=== PATIENT | male | born 1950 | race Caucasian/White ===

== ENCOUNTER → 2016-10-24 | Outpatient (CLI) | payer OTHER | LOC: FIMAGING 11:14 | PROVIDERS: ATTEND Orthopaedic Surgery Orthopaedic Surgery of the Spine | DX: R93.7 Abnormal findings on diagnostic imaging of other parts of musculoskeletal system (principal); M53.3 Sacrococcygeal disorders, not elsewhere classified ==

== ENCOUNTER 2016-11-09 05:36 | Day surgery (SDC) | payer OTHER ==
--- NOTE | 2016-11-08 22:00 | GHP ---
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 HISTORY OF PRESENT ILLNESS: The patient was referred to us for a coccygeal retro fistula with possi ble osteomyelitis. He states that he has had tailbone pain on the left aspect of his buttocks for 7 years and has had 2 MRIs that characterize it. He says that he has pain when sitting. However, he does not associate any pain with bowel movements. He denies any fevers associated with the inflamm atory pain that he is experiencing. He denies any past medical history, including heart or lung iss ues, diabetes mellitus, or asthma. The patient is not a smoker. 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 FAMILY HISTORY: Noncontributory. SOCIAL HISTORY: PAST SURGICAL HISTORY: PAST MEDICAL HISTORY: Negative for any major surgeries or serious hospitalizations. ALLERGIES: No known allergies. MEDICATIONS: No medications. REVIEW OF SYSTEMS: A 10-point review of systems was negative except for as stated above in the HPI. PHYSICAL EXAMINATION: GENERAL: A well groomed, pleasant, nontoxic appearing male. SKIN: Warm, dr stone. HEENT: Normocephalic. Pupils equal and round. Negative for bruits. No scleral icterus. No g ross auditory deficiencies. CARDIAC: Regular rate and rhythm. RESPIRATORY: Clear to auscultation bilaterally. No increased work of breathing. EXTREMITIES: Adequate peripheral perfusion. Negativ e for peripheral edema. MUSCULOSKELETAL: Ambulates independently. Normal gait. NEURO: Alert and oriented x4. PSYCH: Mood and affect are normal. COLORECTAL: Positive for anal fistula at the po sterior aspect that tracks deep about 3 cm, but does not seem to track to bone. Negative for hemorr hoids. ASSESSMENT: 1. Anal fistula. 2. Rectal pain. 3. Suspect the patient's anal pain is secondary to his chronic posterior anal fistula. He is tende r with some movement of his coccyx, but no real evidence of osteomyelitis. PLAN: 1. Examination under anesthesia with anal fistulectomy. 2. A prescription for Bactrim DS 800/160 mg oral tablet 1 tablet p.o. b.i.d. was prescribed on 08/0 09/2016. 3. The patient was advised that he has anal fistula evident by physical exam, and that with this an d review of his MRI films, it is fistula tract deep to the bone. It was pointed out that his fistula probably gets inflamed, which causes his pain, but that his hemorrhoids are not bad and would not be the cause of it. I explained that in the operating room, we can characterize the fist john with dye, then depending on how much of involved, the fistula could be either removed wholly or partially with adhesive repair beyond that. The patient will work with our surgery sched farrukh to figure out a time to go to the OR for an EUA with anal fistulectomy. In the meantime, his M RI will be reviewed with the radiologist to see how close the fistula tracks to the coccyx and discu ss any indications for removing it. /[id number]/MODL
[2016-11-09] MEDS ORDERED: LR 1,000 ML IV ONE (05:49)
[2016-11-09] MEDS ORDERED: LIDOCAINE 1% 2 ML INJ ID PRN (05:49)
[2016-11-09] MEDS ORDERED: LIDOCAINE 1% 2 ML INJ ONE (05:54)
[2016-11-09] MEDS ORDERED: cefOXitin SODIUM 2 GM in D5W 100 ML IV ONE (06:00)
[2016-11-09 06:46] LABS: HEMATOCRIT 39.7 % (40.0-51.0)
[2016-11-09] MEDS ORDERED: MIDAZOLAM 2 MG/2 ML VIAL IVP ONE (06:53)
--- NOTE | 2016-11-09 06:53 | PDANEPAE ---
ANE History of Present Illness 66 year old male w/ limited PMHx presents for repair of anal/rectal fistula with possible sacral osteo. ANE Past Medical History - Cardiovascular History Hx Hypertension: No Hx Arrhythmias: No Hx Chest Pain: No Hx Coronary Artery / Peripheral Vascular Disease: No Hx CHF / Valvular Disease: No Hx Palpitations: No - Pulmonary History Hx COPD: No Hx Asthma/Reactive Airway Disease: No Hx Recent Upper Respiratory Infection: No Hx Oxygen in Use at Home: No Hx Sleep Apnea: No Sleep Apnea Screening Result - Last Documented: Negative - Neurologic History Hx Cerebrovascular Accident: No Hx Seizures: No Hx Dementia: No - Endocrine History Hx Diabetes: No Hypothyroid: No Hyperthyroid: No Obesity: no - Renal History Hx Renal Disorders: Yes Renal History Comment: BPH - Liver History Hx Hepatic Disorders: No - Neurological & Psychiatric Hx Hx Neurological and Psychiatric Disorders: No - Cancer History Hx Cancer: No - Congenital Disorder History Hx Congenital Disorders: No - GI History GERD: no Hx Gastrointestinal Disorders: No - Other Health History Other Health History: NEG - Chronic Pain History Chronic Pain: No - Surgical History Prior Surgeries: NONE ANE Review of Systems - Exercise capacity Exercise capacity: >=4 METS METS (RN): 4 METS ANE Patient History - Allergies Allergies/Adverse Reactions: No Known Drug Allergies Allergy (Verified 11/06/16 06:47) - Home Medications Home medications: home medication list seen and reviewed Home Medications: Ibuprofen 11/07/16 [Last Taken 2 Days Ago] Saw [place] 11/07/16 [Last Taken 2 Days Ago] Bactrim DS 11/09/16 [Last Taken 11/08/16 20:00] - NPO status NPO Status: no food or drink >8 hours NPO Since - Liquids (Date): 11/08/16 NPO Since - Liquids (Time): 20:00 NPO Since - Solids (Date): 11/08/16 NPO Since - Solids (Time): 19:30 - Anes Hx Anes Hx: no prior problems - Smoking Hx Smoking Status: Former smoker - Alcohol Use Alcohol Use: Rarely - Family Anes Hx Family Hx Anesthesia Complications: NEG ANE Labs/Vital Signs - Labs Result Diagrams: 11/09/16 05:47 - Vital Signs Vital Signs: reviewed preoperatively; see RN documention for details Blood Pressure: 127/80 Heart Rate: 69 Respiratory Rate: 14 O2 Sat (%): 95 Height: 180.34 cm Weight: 86.183 kg ANE Physical Exam - Airway Neck exam: FROM Mallampati Score: Class 2 Mouth exam: normal dental/mouth exam - Pulmonary Pulmonary: no respiratory distress - Cardiovascular Cardiovascular: regular rate and rhythym - ASA Status ASA Status: I ANE Anesthesia Plan Anesthesia Plan: general endotracheal anesthesia
[2016-11-09] MEDS ORDERED: HYDROGEN PEROXIDE 236 ML BOTTLE TP ONE (06:56)
[2016-11-09] MEDS ORDERED: METHYLENE BLUE 0.5% 50 MG/10 ML AMP ONE (06:56)
[2016-11-09] MEDS ORDERED: BUPIVACAINE/EPI 0.5% 30 ML SDV ONE ×2 (06:56→07:22)
[2016-11-09] MEDS ORDERED: fentaNYL 100 MCG/2 ML INJ ONE (07:03)
[2016-11-09] MEDS ORDERED: PROPOFOL 200 MG/20 ML VIAL ONE (07:03)
--- NOTE | 2016-11-09 07:07 | PDHPUP ---
History & Physical Update H&P update statement: This history and physical update is based on an assessment of the patient which was completed after admission or registration (within 24 hours), but prior to the surgery/procedure. H&P update: H&P reviewed & patient examined, no change in patient's condition since H&P completed
[2016-11-09] MEDS ORDERED: ROCURONIUM 50 MG/5 ML VIAL ONE (07:16)
[2016-11-09] MEDS ORDERED: LIDOCAINE 2% 5 ML SDV ONE (07:16)
[2016-11-09] MEDS ORDERED: DEXAMETHASONE 4 MG/ML VIAL ONE (07:28)
[2016-11-09] MEDS ORDERED: ONDANSETRON 4 MG/2 ML VIAL ONE (07:28)
[2016-11-09] MEDS ORDERED: LR 500 ML IV PRN (07:37)
[2016-11-09] MEDS ORDERED: NALOXONE HCL 0.4 MG/ML INJ IVP PRN (07:37)
[2016-11-09] MEDS ORDERED: fentaNYL 100 MCG/2 ML INJ IVP PRN (07:37)
[2016-11-09] MEDS ORDERED: MEPERIDINE 25 MG/ML SYR IVP PRN (07:37)
[2016-11-09] MEDS ORDERED: HYDROCODONE/APAP 5/325 TAB PO PRN (07:37)
[2016-11-09] MEDS ORDERED: ONDANSETRON 4 MG/2 ML VIAL IVP PRN (07:37)
[2016-11-09] MEDS ORDERED: SUGAMMADEX SODIUM 200 MG/2 ML VIAL IVP ONE ×2 (08:00)
[2016-11-09] MEDS ORDERED: PHENYLEPHRINE HCL 100 MCG/ML SYR ONE (08:05)
--- NOTE | 2016-11-09 08:43 | POSTOPPROG ---
Post Op Note Date of Operation: 11/09/16 Surgeon: Brian Dominguez Coach Builder: Yancy Reeder Anesthesiologist: M[place] Anesthesia: GET(General Endotracheal) Pre-op Diagnosis: Anal fistula, possible coccygeal osteomyelitis Post-op Diagnosis: Anal fistula Procedure: Anal fistulectomy Findings: Anal fistula, small abscess Inf/Abcess present in the surg proc area at time of surgery?: Yes Depth: Superfical (Skin SQ) EBL: Minimal
[2016-11-09 09:53] VITALS: TEMP 97.7
[2016-11-09 09:55] VITALS: BP 98/72; PULSE 61; RESP 16; O2SAT 98
--- NOTE | 2016-11-09 13:13 | POSTANESTH ---
Post Anesthetic Evaluation Cardiovascular Status: Normal, Stable Respiratory Status: Normal, Stable Level of Consciousness/Mental Status: Can Participate in Eval Pain Control: Adequate, Prn Tx Ordered Nausea/Vomiting Control: Adequate, Prn Tx Ordered Complications Possibly Related to Anesthesia: None Noted
== END 2016-11-09 09:44 | disposition home or self-care (01) ==
LOC: FSGY 05:36
PROVIDERS: ATTEND Surgery
PROC: 0DBQ0ZZ Excision of Anus, Open Approach (ICD-10-PCS; principal; 2016-11-09 07:15)
DX: K60.3 Anal fistula (principal)
CPT/HCPCS: J0694; J1100; J2250; J2370; J2405; J2704; J3010; Q9968

== ENCOUNTER 2017-04-26 06:38 | Day surgery (SDC) | payer OTHER ==
--- NOTE | 2017-04-24 17:54 | GHP ---
[f rep st] PREOP HISTORY AND PHYSICAL DATE OF ADMISSION: 04/24/2017 The patient is a 66-year-old male who underwent exam under anesthesia with anal fistulectomy for an a nal fistula possibly involving coccygeal osteomyelitis. He was initially doing well, but began to de velop recurrent pain. Ultimately, an MRI was ordered and showed a tubular fluid signal intensity col lection extending from the posterior margin of the distal rectum to the tip of the coccyx, suggesting a sinus tract. Also, he had abnormal signal intensity within the distal third segment of the coccyx , which was consistent with acute osteomyelitis. There was mild reactive bone marrow edema throughou t the second coccygeal segment. Patient has been on a course of antibiotics. He still has complaint s of pain. He is now here for coccygectomy. PAST MEDICAL HISTORY: Aside from that in the HPI, is negative for any major surgeries or serious hos pitalizations. MEDICATIONS: No regular medicine use. ALLERGIES: No known drug allergies. SOCIAL HISTORY: He is often here with his . REVIEW OF SYSTEMS: 10-point review of systems negative, aside from that in the HPI. PHYSICAL EXAMINATION: GENERAL: Reveals a well-groomed, pleasant, nontoxic-appearing male. SKIN: W arm and dry. HEENT: Normocephalic. Pupils equal and round. Negative for neck bruits. No scleral icterus. CHEST: Clear to auscultation bilaterally. CARDIAC: Regular rate and rhythm. ABDOMEN: S oft, nontender. EXTREMITIES: Warm, well perfused. No edema. COLORECTAL: Fistula site healed, wit h some residual coccygeal tenderness. IMPRESSION: This is a 66-year-old male with a history of anal fistulectomy potentially with a tract involving the coccyx, rule out osteomyelitis. PLAN: Plan is to proceed with a coccygectomy. Risks and options have been fully discussed and he re quests to proceed. /[id number]/MODL
[~2017-04-26 06:38] MED LIST: ERTAPENEM 1 GM VIAL IVP ONE
[2017-04-26] MEDS ORDERED: LR 1,000 ML IV ONE (06:43)
[2017-04-26] MEDS ORDERED: LIDOCAINE 1% 2 ML INJ ID PRN (06:43)
--- NOTE | 2017-04-26 08:03 | PDANEPAE ---
ANE History of Present Illness 66 yo for coccygectomy for osteo ANE Past Medical History - Cardiovascular History Hx Hypertension: No Hx Arrhythmias: No Hx Chest Pain: No Hx Coronary Artery / Peripheral Vascular Disease: No Hx CHF / Valvular Disease: No Hx Palpitations: No - Pulmonary History Hx COPD: No Hx Asthma/Reactive Airway Disease: No Hx Recent Upper Respiratory Infection: No Hx Oxygen in Use at Home: No Hx Sleep Apnea: No Sleep Apnea Screening Result - Last Documented: Negative - Neurologic History Hx Cerebrovascular Accident: No Hx Seizures: No Hx Dementia: No - Endocrine History Hx Diabetes: No - Renal History Hx Renal Disorders: Yes Renal History Comment: BPH - Liver History Hx Hepatic Disorders: No - Neurological & Psychiatric Hx Hx Neurological and Psychiatric Disorders: No - Cancer History Hx Cancer: No - Congenital Disorder History Hx Congenital Disorders: No - GI History Hx Gastrointestinal Disorders: No - Other Health History Other Health History: NEG - Chronic Pain History Chronic Pain: No - Surgical History Prior Surgeries: FISSURECTOMY ANE Review of Systems Review of Systems: - Exercise capacity METS (RN): 5 METS ANE Patient History - Allergies Allergies/Adverse Reactions: No Known Drug Allergies Allergy (Verified 11/06/16 06:47) - Home Medications Home medications: home medication list seen and reviewed Home Medications: Ibuprofen 11/07/16 [Last Taken 3 Days Ago ~04/23/17] Saw [place] 11/07/16 [Last Taken 04/25/17 20:00] - NPO status NPO Status: no food or drink >8 hours NPO Since - Liquids (Date): 04/25/17 NPO Since - Liquids (Time): 22:00 NPO Since - Solids (Date): 04/25/17 NPO Since - Solids (Time): 21:00 - Anes Hx Anes Hx: no prior problems - Smoking Hx Smoking Status: Former smoker - Family Anes Hx Family Hx Anesthesia Complications: NEG ANE Labs/Vital Signs - Vital Signs Blood Pressure: 124/77 Heart Rate: 71 Respiratory Rate: 15 O2 Sat (%): 91 Height: 5 ft 10 in Weight: 83.915 kg ANE Physical Exam - Airway Neck exam: FROM Mallampati Score: Class 2 Mouth exam: normal dental/mouth exam - Pulmonary Pulmonary: no respiratory distress - Cardiovascular Cardiovascular: regular rate and rhythym - ASA Status ASA Status: I ANE Anesthesia Plan Anesthesia Plan: general endotracheal anesthesia
[2017-04-26] MEDS ORDERED: MIDAZOLAM 2 MG/2 ML VIAL IVP ONE (08:04)
[2017-04-26] MEDS ORDERED: BUPIVACAINE 0.5% 30 ML SDV ONE (08:04)
--- NOTE | 2017-04-26 08:11 | PDHPUP ---
History & Physical Update H&P update statement: This history and physical update is based on an assessment of the patient which was completed after admission or registration (within 24 hours), but prior to the surgery/procedure.
[2017-04-26] MEDS ORDERED: fentaNYL 100 MCG/2 ML INJ ONE (08:14)
[2017-04-26] MEDS ORDERED: PROPOFOL/EMULSION 500 MG/50 ML BOTTLE IV ONE (08:17)
[2017-04-26] MEDS ORDERED: ROCURONIUM 50 MG/5 ML VIAL ONE (08:17)
[2017-04-26] MEDS ORDERED: NALOXONE HCL 0.4 MG/ML INJ IVP PRN (09:07)
[2017-04-26] MEDS ORDERED: fentaNYL 100 MCG/2 ML INJ IVP PRN (09:07)
[2017-04-26] MEDS ORDERED: ONDANSETRON 4 MG/2 ML VIAL IVP PRN (09:07)
[2017-04-26] MEDS ORDERED: HYDROCODONE/APAP 5/325 TAB PO PRN (09:07)
[2017-04-26] MEDS ORDERED: ONDANSETRON 4 MG/2 ML VIAL ONE (09:15)
[2017-04-26] MEDS ORDERED: SUGAMMADEX SODIUM 200 MG/2 ML VIAL IVP ONE (09:15)
--- NOTE | 2017-04-26 09:37 | POSTOPPROG ---
Post Op Note Date of Operation: 04/26/17 Surgeon: Brian Dominguez Yacht Hand: elizabeth Anesthesiologist: avelino Anesthesia: GET(General Endotracheal) Pre-op Diagnosis: coccyx osteomyelitis Post-op Diagnosis: same Indication: pain Procedure: coccygectomy and anl fistulectomy/ EUA and lat int sphincterotomy Findings: subcoccygeal abscess, ? osteo/ post anal fissure but no definite connectio Inf/Abcess present in the surg proc area at time of surgery?: Yes Depth: Organ Space EBL: Minimal Complications: 0 Specimen(s): coccyx and culture
[2017-04-26] MEDS ORDERED: KETOROLAC 30 MG/1 ML SDV IVP ONE (09:42)
[2017-04-26 10:06] VITALS: PULSE 75; TEMP 97.3
[2017-04-26 11:28] VITALS: BP 111/72; RESP 19; O2SAT 92
--- NOTE | 2017-04-28 15:10 | GOP ---
[f rep st] OPERATIVE REPORT DATE OF OPERATION: 04/26/2017 SURGEON: Brian Dominguez MD DIESEL ENGINE PIPE FITTER: Janett Preston NP PREOPERATIVE DIAGNOSIS: Possible osteomyelitis of the coccyx with persistent anal fistula and anal f issure. POSTOPERATIVE DIAGNOSIS: Possible osteomyelitis of the coccyx with persistent anal fistula and anal fissure. PROCEDURE PERFORMED: 1. Exam under anesthesia with lateral internal sphincterotomy. 2. Coccygectomy and anal fistulectomy and drainage of abscess. FINDINGS: Patient was found to have a pre-coccygeal small abscess appearing to be related to an anal fistula, although no definite anal fistula connection could be achieved. The patient did have a pos terior anal fissure which was apparent, but was healing. The cartilage of the coccyx did not appear to be infected. DESCRIPTION OF PROCEDURE: The patient was taken to the operating room, where he received satisfactor y general endotracheal anesthesia by Dr. Brady. He was placed in the prone eric-knife position, p repped and draped in usual sterile fashion. A vertical incision was made over his coccyx. Dissectio n extended down through subcutaneous tissue and through the superficial musculature and dissected dir ectly down to the coccyx. The tip of the coccyx was freed from the posterior muscular and ligamentou s attachments. The coccyx was elevated up, was completely freed on either side. This exposed a smal l 3 cc abscess pocket of chronic abscess material. There was no true purulence. Coccyx was elevated up and then divided at the sacrococcygeal connection, which was removed using a rongeur. The absces s pocket was excised and could be curetted free. However, no communication to the rectum could be es tablished. This entire pocket was cleaned out, irrigated. Exam was done of the anal canal and a 1 c m higher posterior fissure was identified. This appeared to be healing compared to previous exams. A short lateral internal sphincterotomy was done at the 3 o'clock position with a short incision in t he intersphincteric plane. Internal sphincter was grasped with an Allis clamp and divided for approx imately 50% of its diameter. The wound was closed with 4-0 chromic suture and the anus was stretched to 3 fingerbreadths. Wounds were all infiltrated with 0.5% Marcaine. Some topical thrombin was bre cesar in the coccygeal wound and it was then packed with a Betadine gauze. He was taken to recovery ro in good condition. There were no complications. Blood loss was negligible. Copy requested to: Marcos Rosenberg MD /[id number]/MODL
== END 2017-04-26 12:16 | disposition home or self-care (01) ==
LOC: FSGY 06:38
PROVIDERS: ATTEND Surgery
PROC: 0QBS0ZZ Excision of Coccyx, Open Approach (ICD-10-PCS; principal; 2017-04-26 08:15)
PROC: 0D8R0ZZ Division of Anal Sphincter, Open Approach (ICD-10-PCS; principal; 2017-04-26 08:15)
PROC: 0D9Q0ZZ Drainage of Anus, Open Approach (ICD-10-PCS; principal; 2017-04-26 08:15)
DX: K61.4 Intrasphincteric abscess (principal); K60.3 Anal fistula; B95.7 Other staphylococcus as the cause of diseases classified elsewhere; N40.0 Benign prostatic hyperplasia without lower urinary tract symptoms; Z87.891 Personal history of nicotine dependence
CPT/HCPCS: J1335; J2250; J2405; J2704; J3010